=== PATIENT | male | born 1970 | race Caucasian/White ===

== ENCOUNTER 2019-06-10 09:30 | Emergency (ER) | payer MEDICAID, OTHER ==
--- NOTE | 2019-06-10 10:27 | NUR ---
THIRD CALL TO TRIAGE, NOT IN LOBBY
== END 2019-06-10 11:06 | disposition left against medical advice (07) ==
LOC: ER 09:30
DX: R10.30 Lower abdominal pain, unspecified (principal); Z53.21 Procedure and treatment not carried out due to patient leaving prior to being seen by health care provider